=== PATIENT | male | born 1995 | race African-American/Black ===

== ENCOUNTER 2019-10-06 11:23 | Emergency (ER) | payer MEDICAID ==
[~2019-10-06] VITALS: Ht 185.4 cm; Wt 75.0 kg
[2019-10-06 12:01] VITALS: BP 113/67
[2019-10-06] MEDS ORDERED: CEFTRIAXONE SODIUM 250 MG/VIAL IM ONE (13:45)
[2019-10-06] MEDS ORDERED: AZITHROMYCIN 500 MG TABLET PO ONE (13:45)
[2019-10-06 14:23] LABS: CLARITY URINE CLOUDY (CLEAR); COLOR URINE YELLOW (YELLOW); KETONES URINE NEGATIVE (NEGATIVE); LEUKOCYTE ESTERASE URINE 2+ (NEGATIVE); NITRITE URINE NEGATIVE (NEGATIVE); OCCULT BLOOD URINE NEGATIVE (NEGATIVE); PROTEIN URINE NEGATIVE (NEGATIVE); SPECIFIC GRAVITY URINE 1.021 (1.005-1.030); UROBILINOGEN URINE 0.2 E.U./dL (0.2-1.0)
== END 2019-10-06 15:28 | disposition home or self-care (01) ==
LOC: ER 11:23
DX: N34.2 Other urethritis (principal); F12.10 Cannabis abuse, uncomplicated
CPT/HCPCS: 81003; 87086; 96372; 99283; J0696

== ENCOUNTER 2019-11-08 01:53 | Emergency (ER) | payer MEDICAID ==
[~2019-11-08] VITALS: Ht 185.4 cm; Wt 74.0 kg
[2019-11-08] MEDS ORDERED: CEFTRIAXONE SODIUM 250 MG/VIAL IM ONE (02:45)
[2019-11-08] MEDS ORDERED: AZITHROMYCIN 500 MG TABLET PO ONE (02:45)
[2019-11-08 03:25] VITALS: BP 116/61
[2019-11-08 03:48] LABS: CLARITY URINE CLOUDY (CLEAR); COLOR URINE YELLOW (YELLOW); KETONES URINE NEGATIVE (NEGATIVE); LEUKOCYTE ESTERASE URINE 2+ (NEGATIVE); NITRITE URINE NEGATIVE (NEGATIVE); OCCULT BLOOD URINE TRACE (NEGATIVE); PH URINE 5.5 (4.5-8.0); PROTEIN URINE NEGATIVE (NEGATIVE); SPECIFIC GRAVITY URINE 1.024 (1.005-1.030); UROBILINOGEN URINE 0.2 E.U./dL (0.2-1.0)
== END 2019-11-08 03:25 | disposition home or self-care (01) ==
LOC: ER 01:53
DX: R36.9 Urethral discharge, unspecified (principal); F12.10 Cannabis abuse, uncomplicated
CPT/HCPCS: 81003; 87077; 87086; 96372; 99283; J0696